=== PATIENT | female | born 1995 ===

== ENCOUNTER → 2022-02-18 | Outpatient (CLI) | payer OTHER | LOC: MC.RAD 13:49 | DX: N63.20 Unspecified lump in the left breast, unspecified quadrant (principal); N60.12 Diffuse cystic mastopathy of left breast ==

== ENCOUNTER → 2023-02-09 | Outpatient (CLI) | payer OTHER ==
[~2023-02-09] MED LIST: DESYREL 50MG50 MG PO; LEXAPRO20 MG PO; MAXALT5 MG PO; MOTRIN 600600 MG/TAB PO; NORCO 325 MG-51 TAB PO; NORG-EE 0.18-01 EACH PO; OPTIVE 0.5%-0.915 ML OP; TRIAMCINOLONE A15 GM TP; ZYRTEC 10MG10 MG PO
== END ==
LOC: MC.RAD 09:51
DX: N60.02 Solitary cyst of left breast (principal)

== ENCOUNTER 2024-01-05 13:55 | Emergency (ER) | payer OTHER ==
[~2024-01-05] VITALS: Ht 167.6 cm; Wt 60.0 kg
[2024-01-05 14:09] VITALS: TEMP 98.2
[2024-01-05 15:49] LABS: COLLECTION METHOD CLEAN CATCH
[2024-01-05 15:58] LABS: URINE APPEARANCE CLOUDY (CLEAR/HAZY); URINE BLOOD TRACE (NEGATIVE); URINE COLOR YELLOW (YELLOW); URINE GLUCOSE NEGATIVE (NEGATIVE); URINE KETONE 1+ (NEGATIVE); URINE NITRATE NEGATIVE (NEGATIVE); URINE PROTEIN(semi-quant) NEGATIVE (NEGATIVE); URINE UROBILINOGEN 0.2 E.U/dL (0.2-1.0)
[2024-01-05 16:20] LABS: BUDDING YEAST PRESENT (NOT PRESENT); MUCOUS PRESENT (NOT PRESENT); URINE BACTERIA OCCASIONAL /hpf (NONE SEEN); URINE CALCIUM OXALATE CRYSTAL PRESENT (NOT PRESENT); URINE RBC 0-2 /hpf (0-2)
[2024-01-05] MEDS ORDERED: NORCO 325 MG-51 TAB PO (16:37)
[2024-01-05 16:52] VITALS: BP 118/69; PULSE 85
== END 2024-01-05 16:58 | disposition home or self-care (01) ==
LOC: COL.ER 13:55
PROVIDERS: Personal Emergency Response Attendant
DX: O99.891 Other specified diseases and conditions complicating pregnancy (principal); M54.16 Radiculopathy, lumbar region; Z3A.13 13 weeks gestation of pregnancy